=== PATIENT | female | born 1975 | race African-American/Black ===

== ENCOUNTER 2023-10-04 16:10 | Emergency (ER) | payer OTHER, SELFPAY ==
--- NOTE | 2023-10-04 | ECG_ITS ---
Test Reason : HTN Blood Pressure : / mmHG Vent. Rate : 073 BPM Atrial Rate : 073 BPM P-R Int : 138 ms QRS Dur : 076 ms QT Int : 408 ms P-R-T Axes : 060 074 072 degrees QTc Int : 449 ms Normal sinus rhythm Normal ECG No previous ECGs available Referred By: Generic ED Physician Electronically Signed By:JACI ALLEN MD
--- NOTE | ~2023-10-04 | XR_ITS ---
EXAMINATION: XR CHEST 2 VIEW CLINICAL INFORMATION: Chest pain COMPARISON: None TECHNIQUE: PA and lateral views of the chest obtained. FINDINGS: The lungs are clear. There are no pleural effusions. The cardiomediastinal silhouette is normal. No rib fracture, bone lesion or pneumothorax is evident. XR/XR chest 2V IMPRESSION: No acute cardiopulmonary disease.
[2023-10-04 16:39] VITALS: BP 188/113; PULSE 81; RESP 18; TEMP 36.7; O2SAT 98; BMI 23.2
--- NOTE | 2023-10-04 16:39 | ED.GENADULT ---
HPI - General Adult General Chief complaint: General Medical Stated complaint: pt doc told to come elevated BP Time Seen by Provider: 10/04/23 23:58 Source: patient Mode of arrival: ambulatory Limitations: no limitations History of Present Illness HPI narrative: Patient history of hypertension for last 3 years on lisinopril noncompliant did not take her medication for last 3 weeks comes here for 3 days of not feeling good with heaviness in the head gradual onset no nausea no vomiting or chest pain or shortness of breath no leg edema Related Data Previous Rx's Medication Instructions Recorded lisinopril 20 1 tab PO DAILY #90 tabs 10/05/23 mg-hydrochlorothiazide 12.5 mg tablet Allergies Allergy/AdvReac Type Severity Reaction Status Date / Time No Known Allergies Allergy Verified 10/04/23 16:39 Review of Systems Review of Systems: Yes all other systems are reviewed and are negative PMFSH Social History Social History Smoked in Last 30 Days: Yes Use of substances other than those prescribed or required for medical reasons: No Advance Directives: No Advance Directives Information Provided: No Physical Exam ED Vital Signs: Vital Signs - 24 hr 10/04/23 16:39 10/04/23 19:48 10/04/23 23:55 Temperature 98.0 F 97.6 F Pulse Rate 81 92 70 Respiratory Rate 18 18 16 Blood Pressure 188/113 H 163/115 H 181/112 H Pulse Oximetry 98 98 100 Oxygen Delivery Method Room Air Room Air Room Air 10/04/23 23:58 10/05/23 00:18 10/05/23 00:19 Temperature Pulse Rate 71 72 72 Respiratory Rate Blood Pressure 191/113 H 197/121 H 200/119 H Pulse Oximetry Oxygen Delivery Method 10/05/23 00:24 10/05/23 00:30 10/05/23 00:35 Temperature Pulse Rate 83 71 76 Respiratory Rate 16 Blood Pressure 155/107 H 170/104 H 158/96 H Pulse Oximetry Oxygen Delivery Method 10/05/23 00:40 10/05/23 00:45 10/05/23 00:50 Temperature Pulse Rate 73 74 71 Respiratory Rate Blood Pressure 181/109 H 173/108 H 169/106 H Pulse Oximetry Oxygen Delivery Method 10/05/23 01:12 Temperature 97.9 F Pulse Rate 87 Respiratory Rate Blood Pressure 152/90 H Pulse Oximetry Oxygen Delivery Method BMI result Body Mass Index 23.2 Appearance: Alert. Oriented X3. No acute distress. Eyes: PERRLA, No Nystagmus ENT: Pharynx normal. Oral Mucosa moist Neck: Normal inspection. Neck supple. CVS: Normal heart rate and rhythm. Pulses normal. Respiratory: No respiratory distress. Equal air entry bilateral, no wheezing/rales/rhonchi Abdomen: Soft and nontender. Bowel sounds are present, no mass palpable, no CVA tenderness Skin: Skin warm and dry. Normal skin color. Normal skin turgor. Extremities: No lower extremity edema. No calf tenderness Neuro: Oriented X 3. No motor deficit. No sensory deficit.No cerebellar signs , cranial nerves II-XII intact Course Course Course Narrative: RME- 48 year old female presents for evaluation of shortness of breath and elevated blood pressure. In triage she is hypertensive to 118/113. she reports that she has been out of her BP meds for a few weeks Medications Administered Discontinued Medications Generic Name Dose Route Start Last Admin Trade Name Freq PRN Reason Stop Dose Admin Labetalol HCl 10 mg 10/05/23 00:08 10/05/23 00:21 Labetalol Hcl 100 Mg/20 Ml Vial IVPUSH 10/05/23 00:09 10 mg ONCE ONE Administration Lisinopril 20 mg 10/05/23 00:08 10/05/23 00:21 Lisinopril 20 Mg Tablet PO 10/05/23 00:09 20 mg ONCE ONE Administration Protocol Medical Decision Making Medical Decision Making [facility] Narrative: Patient with uncontrolled hypertension secondary to noncompliance to medication complaining of headache patient has gradual onset not acute no nausea no vomiting likely SAH or ICH will give IV labetalol and p.o. lisinopril wait further response patient blood pressure improved to 150/90 feeling much better discharge patient home Differential Diagnosis Differential Diagnoses: The differential diagnosis associated with the presentation includes Accelerated hypertension/hypertension urgency Lab Data [facility] Lab Attestation statement: I reviewed the patient's lab results. 10/04/23 18:39 10/04/23 18:39 Labs: Lab Results 10/04/23 10/05/23 10/05/23 Range/Units 18:39 00:02 01:15 WBC 6.8 (4.8-10.8) X10*3/uL RBC 4.61 (4.20-5.50) X10*6/uL Hgb 14.0 (12.0-16.0) g/dl Hct 41.6 (37.0-47.0) % MCV 90.2 (80.0-98.0) fL MCH 30.4 (27.0-33.0) pg MCHC 33.7 (31.0-35.0) g/dl RDW 14.7 (11.0-16.0) % Plt Count 283 (160-400) X10*3/uL MPV 11.7 (9.4-12.3) fL Immature Gran % (Auto) 0.1 (0.0-0.4) % Neut % (Auto) 38.0 L (45-73) % Lymph % (Auto) 49.6 H (20-40) % [place] % (Auto) 9.7 (2-11) % Eos % (Auto) 2.2 (0-4) % Baso % (Auto) 0.4 (0-2) % Lymph # (Auto) 3.4 (1.2-4.9) X10*3/uL [place] # (Auto) 0.7 (0.1-1.2) X10*3/uL Eos # (Auto) 0.2 (0.0-0.4) X10*3/uL Baso # (Auto) 0.0 (0.0-0.2) X10*3/uL Abs Immat Gran (auto) 0.01 (0.00-0.03) X10*3/uL Absolute Neuts (auto) 2.6 (2.0-8.3) x10*3/uL Absolute Nucleated RBC 0.000 (0.0-0.012) X10*3/uL Nucleated RBC % (auto) 0.0 (0.0-0.2) /100WBC PT 11.0 L (11.1-13.3) SEC INR 0.9 (0.9-1.1) Sodium 143 (135-145) mmol/L Potassium 4.0 (3.3-5.1) mmol/L Chloride 111 H (96-108) mmol/L Carbon Dioxide 26 (22-29) mmol/L Anion Gap 10 L (12-20) BUN 17 H (9-16) mg/dL Creatinine 0.80 (0.5-1.4) mg/dL Estim Creat Clear Calc 66.3 Estimated GFR > 60 POC Glucose 73 (60-115) mg/dL Random Glucose 81 (60-115) mg/dL Calcium 9.3 (8.4-10.2) mg/dL Total Bilirubin 0.4 (0.0-1.0) mg/dL AST 24 (5-31) U/L ALT 18 (0-31) U/L Alkaline Phosphatase 83 (39-117) U/L Troponin I High Sens 15.3 13.3 (<3.5-17.0) ng/L B-Natriuretic Peptide 72 (<100) pg/mL Total Protein 7.4 (6.5-8.0) g/dL Albumin 4.1 (3.5-5.0) g/dL Lipase 64 (8-78) U/L Influenza Type A (PCR) NEGATIVE (Negative) Influenza Type B (PCR) NEGATIVE (Negative) RSV RNA Qual (PCR) NEGATIVE (Negative) SARS-CoV-2 RNA (RT-PCR) NEGATIVE (Negative) Discharge Plan Discharge Clinical Impression: Hypertension Patient Disposition: Home, Self-Care Instructions: Hypertension (ED) Additional Instructions: Taking medication for your blood pressure daily on time Check your blood pressure should be less than 130/80 Follow with PCP Prescriptions: New lisinopril-hydrochlorothiazide 20-12.5 mg tablet 1 tab PO DAILY Qty: 90 2RF Stand Alone Forms: Work/School Release
[2023-10-04 18:45] LABS: MANUAL DIFF FLAG NO
[2023-10-04 18:46] LABS: Basophils Percent Auto 0.4 % (0-2); Eosinophils Absolute Auto 0.2 X10*3/uL (0.0-0.4); Eosinophils Percent Auto 2.2 % (0-4); Hematocrit 41.6 % (37.0-47.0); Imm Gran Abs Auto 0.01 X10*3/uL (0.00-0.03); Imm Gran Pct Auto 0.1 % (0.0-0.4); Lymphocytes Absolute Auto 3.4 X10*3/uL (1.2-4.9); Lymphocytes Percent Auto 49.6 % (20-40); Mean Corpuscular HGB Conc 33.7 g/dl (31.0-35.0); Mean Corpuscular Hemoglobin 30.4 pg (27.0-33.0); Mean Corpuscular Volume 90.2 fL (80.0-98.0); Mean Platelet Volume 11.7 fL (9.4-12.3); Monocytes Absolute Auto 0.7 X10*3/uL (0.1-1.2); Monocytes Percent Auto 9.7 % (2-11); Neutrophils Absolute Auto 2.6 x10*3/uL (2.0-8.3); Platelet Count 283 X10*3/uL (160-400); Red Blood Count 4.61 X10*6/uL (4.20-5.50); Red Cell Distribution Width 14.7 % (11.0-16.0); White Blood Count 6.8 X10*3/uL (4.8-10.8)
[2023-10-04 19:00] LABS: Alanine Aminotransferase 18 U/L (0-31); Albumin Level 4.1 g/dL (3.5-5.0); Alkaline Phosphatase 83 U/L (39-117); Anion Gap 10 (12-20); Aspartate Amino Transferase 24 U/L (5-31); Bilirubin Total 0.4 mg/dL (0.0-1.0); Blood Urea Nitrogen 17 mg/dL (9-16); Calcium 9.3 mg/dL (8.4-10.2); Carbon Dioxide 26 mmol/L (22-29); Chloride 111 mmol/L (96-108); Creatinine Clr Calc Pharmacy 66.3; Estimated Glomerular Filt Rate > 60; Glucose Random 81 mg/dL (60-115); Lipase 64 U/L (8-78); Sodium 143 mmol/L (135-145); Total Protein 7.4 g/dL (6.5-8.0)
[2023-10-04 19:04] LABS: B Type Natriuretic Peptide 72 pg/mL (<100)
[2023-10-04 19:05] LABS: INTERNATIONAL NORM RATIO 0.9 (0.9-1.1)
[2023-10-04 19:07] LABS: Troponin-I High Sensitivity 15.3 ng/L (<3.5-17.0)
[2023-10-04 19:21] LABS: Influenza A PCR NEGATIVE (Negative); Influenza B PCR NEGATIVE (Negative); Resp Syncy Virus RNA Qual PCR NEGATIVE (Negative); SARS COV2 PCR INHOUSE NEGATIVE (Negative)
[2023-10-04 19:48] VITALS: BP 163/115; PULSE 92; RESP 18; TEMP 36.4; O2SAT 98
[2023-10-04 23:55] VITALS: BP 181/112; PULSE 70; RESP 16; O2SAT 100
[2023-10-04 23:58] VITALS: BP 191/113; PULSE 71
[2023-10-05] VITALS (9 sets, daily range): BP systolic 152–200; BP diastolic 90–121; PULSE 71–87; RESP 16; TEMP 36.6
--- NOTE | 2023-10-05 | PC.NURSE ---
pt brought in from waiting room approx 2350. pt changed into hospital gown placed on heart monitor. vitals as documented. pt reports HAMLIN/blurry vision/dizziness/high bp. pt reports not taking bp meds x 3 weeks. pt denies cp/sob/n/v/d. first trop elevated; iv established repeat trop drawn and sent to lab. ekg not done in triage. ekg ordered; reviewed by Dr. Hairston. orthostatics ordered; as documented by [place] PCT. Dr. Hairston to bedside to evaluate pt.
[2023-10-05] MEDS: Labetalol HCL 100 MG/20 ML VIAL 10 MG IVPUSH (00:21)
[2023-10-05] MEDS: lisinopriL 20 MG TABLET PO (00:21)
--- NOTE | 2023-10-05 00:21 | PC.NURSE ---
pt medicated per dec. vss. nsr on monitor 82 bpm. lights dimmed. bp q5 min. call andrews within reach.
[2023-10-05 00:36] LABS: Troponin-I High Sensitivity 13.3 ng/L (<3.5-17.0)
--- NOTE | 2023-10-05 01:16 | PC.NURSE ---
bp trending down as documented. pt reported feeling jittery/shaky. afebrile. poc 73. apple juice given.
[2023-10-05 01:19] LABS: Glucose, Whole Blood 73 mg/dL (60-115)
== END 2023-10-05 01:43 | disposition home or self-care (01) ==
PROVIDERS: Physician Assistant; Emergency Provider Internal Medicine
DX: R07.89 Other chest pain (principal); I10 Essential (primary) hypertension; R06.02 Shortness of breath; Z91.148 Patient's other noncompliance with medication regimen for other reason; Z79.899 Other long term (current) drug therapy
CPT/HCPCS: 0241U; 36415; 71046; 80053; 82947; 83690; 83880; 84484; 85025; 85610; 93005; 96374; 99284; 99285; J1920

== ENCOUNTER → 2023-10-04 18:38 | Outpatient (BNV) | payer OTHER, SELFPAY | PROVIDERS: Emergency Provider Internal Medicine; Visit Provider Internal Medicine Cardiovascular Disease | DX: I10 Essential (primary) hypertension (principal) | CPT/HCPCS: 93010 ==

== ENCOUNTER 2024-05-23 14:02 | Outpatient (REF) | payer OTHER, SELFPAY ==
[2024-05-23 16:15] LABS: Erythrocyte Sedimentation Rate 6 MM/HR (0-20)
[2024-05-24 12:14] LABS: Lyme Abs Screen <0.90 index
[2024-05-26 19:38] LABS: Aldolase 1.7 U/L (<=8.1)
== END 2024-05-23 14:03 | disposition home or self-care (01) ==
LOC: HO.LAB 14:02
PROVIDERS: Visit Provider Psychiatry & Neurology Neurology
DX: M62.838 Other muscle spasm (principal)
CPT/HCPCS: 36415; 82085; 82550; 85652; 86617; 86618